=== PATIENT | female | born 1945 | race Caucasian/White ===

== ENCOUNTER 2016-06-27 08:50 | Day surgery (SDC) | payer OTHER ==
--- NOTE | ~2016-06-27 | EGD ---
EGD REPORT [facility] [address] [id number] NAME: CHERYL CANO : [birth year] STATUS : REG [facility]#: [id number] AGE: 71 ADM/REG DATE : 06/27/16 MR#: [id number] REPORT SERV DATE: 06/27/16 DICTATED BY: ERNA BAKER DATE: 06/27/16 REPORT STATUS : Draft [facility] DATE: 06/27/16 Endoscopy Center Patient Name: Cheryl Cano Date of : 1945 Attending MD: ERNA BAKER MD Procedure Date No Time: 06/27/2016 Procedure: Colonoscopy Indications: High risk colon cancer surveillance: Personal history of colonic polyps Referring MD: CARRILLO LOVE Medicines: Monitored Anesthesia Care Complications: No immediate complications. Procedure: Pre-Anesthesia Assessment: - ASA Grade Assessment: I - A normal, healthy patient. After I obtained informed consent, the scope was passed under direct vision. Throughout the procedure, the patient's blood pressure, pulse, and oxygen saturations were monitored continuously. The [facility] [id number] was introduced through the anus and advanced to the cecum, identified by appendiceal orifice and ileocecal valve. The colonoscopy was performed without difficulty. The patient tolerated the procedure well. The quality of the bowel preparation was good. Findings: The digital rectal exam was normal. Pertinent negatives include no palpable rectal lesions. Four sessile polyps were found in the transverse colon. The polyps were 4 to 12 mm in size. These polyps were removed with a cold snare. Resection and retrieval were complete. A sessile polyp was found in the sigmoid colon. The polyp was 6 mm in size. The polyp was removed with a cold snare. Resection and retrieval were complete. Hemorrhoids were found during retroflexion and were mild. Impression: - Four 4 to 12 mm polyps in the transverse colon. Resected and retrieved. - One 6 mm polyp in the sigmoid colon. Resected and retrieved. - Hemorrhoids. Recommendation: - Patient has a contact number available for emergencies. The signs and symptoms of potential delayed complications were discussed with the patient. Return to normal activities tomorrow. Written discharge EGD REPORT [address] [address] NAME: CHERYL CANO : [birth year] [place]US [place] [facility] [id number] AGE: 71 ADM/REG DATE : 06/27/16 MR#: [id number] REPORT SERV DATE: 06/27/16 DICTATED BY: ERNA BAKER DATE: 06/27/16 REPORT STATUS : Draft TRANSCRIBED BY: [employer] DATE: 06/27/16 instructions were provided to the patient. - Regular diet. - Continue present medications. - Await pathology results. - Repeat colonoscopy in 3 - 5 years for surveillance based on pathology results. - Return to GI clinic PRN. Procedure Code(s): --- Professional --- 98910, Colonoscopy, flexible, proximal to splenic flexure; with removal of tumor(s), polyp(s), or other lesion(s) by snare technique Diagnosis Code(s): --- Professional --- D12.5, Benign neoplasm of sigmoid colon D12.3, Benign neoplasm of transverse colon K64.9, Unspecified hemorrhoids Z86.010, Personal history of colonic polyps CPT copyright 2013 [employer]. All rights reserved. The codes documented in this report are preliminary and upon skate hop review may be revised to meet current compliance requirements. ERNA BAKER MD 06/27/2016 11:44 AM This report has been signed electronically. Number of Addenda: 0 Note Initiated On: 06/27/2016 10:54 AM Scope Withdrawal Time 0 hours 15 minutes 41 seconds [address] [id number]
--- NOTE | ~2016-06-27 | EGD ---
EGD REPORT [facility] [address] [address] NAME: CHERYL CANO : [birth year] STATUS : REG [facility]#: [id number] AGE: 71 ADM/REG DATE : 06/27/16 MR#: [id number] REPORT SERV DATE: 06/27/16 DICTATED BY: RENA BAKER DATE: 06/27/16 REPORT STATUS : Draft [facility]ANS[facility]IBED [facility]: [facility] DATE: 06/27/16 Endoscopy Center Patient Name: Cheryl Cano Date of : 1945 Attending MD: ERNA BAKER MD Procedure Date No Time: 06/27/2016 Procedure: Upper GI endoscopy Indications: Dysphagia, Heartburn Referring MD: CARRILLO LOVE Medicines: Monitored Anesthesia Care Complications: No immediate complications. Procedure: Pre-Anesthesia Assessment: - ASA Grade Assessment: I - A normal, healthy patient. After obtaining informed consent, the endoscope was passed under direct vision. Throughout the procedure, the patient's blood pressure, pulse, and oxygen saturations were monitored continuously. The GIF H190 [id number] was introduced through the mouth, and advanced to the second part of duodenum. The upper GI endoscopy was accomplished without difficulty. The patient tolerated the procedure well. Findings: No endoscopic abnormality was evident in the esophagus to explain the patient's complaint of dysphagia. It was decided, however, to proceed with dilation of the entire esophagus. A guidewire was placed and the scope was withdrawn. Dilation was performed with a Savary dilator with mild resistance at 45 Fr and mild resistance at 48 Fr. Localized mildly erythematous mucosa without bleeding was found in the gastric antrum. Biopsies were taken with a cold forceps for histology. The cardia and gastric fundus were normal on retroflexion. Localized mildly erythematous mucosa without active bleeding and with no stigmata of bleeding was found in the duodenal bulb. Biopsies were taken with a cold forceps for histology. The cardia and gastric fundus were normal on retroflexion. A medium-sized diverticulum was found in the second part of the duodenum. Impression: - No endoscopic esophageal abnormality to explain patient's dysphagia. Esophagus dilated. Dilated. - Erythematous mucosa in the antrum. Biopsied. - Erythematous duodenopathy. Biopsied. Recommendation: - Patient has a contact number available for emergencies. The signs and symptoms of potential delayed complications were discussed with the patient. Return to EGD REPORT [address] [place]. [address] NAME: CHERYL CANO : [birth year] STATUS : REG [facility] [place] PAT#: [id number] AGE: 71 ADM/REG DATE : 06/27/16 MR#: [id number] REPORT SERV DATE: 06/27/16 DICTATED BY: ERNA BAKER DATE: 06/27/16 REPORT STATUS : Draft TRANSCRIBED BY: [employer] DATE: 06/27/16 normal activities tomorrow. Written discharge instructions were provided to the patient. - Await pathology results. - Follow an antireflux regimen. Procedure Code(s): --- Professional --- 44247, Esophagogastroduodenoscopy, flexible, transoral; with insertion of guide wire followed by passage of dilator(s) through esophagus over guide wire 40077, Esophagogastroduodenoscopy, flexible, transoral; with biopsy, single or multiple Diagnosis Code(s): --- Professional --- R13.10, Dysphagia, unspecified K31.9, Disease of stomach and duodenum, unspecified K31.89, Other diseases of stomach and duodenum R12, Heartburn CPT copyright 2013 [employer]. All rights reserved. The codes documented in this report are preliminary and upon rehabilitation specialist review may be revised to meet current compliance requirements. ERNA BAKER MD 06/27/2016 11:17 AM This report has been signed electronically. Number of Addenda: 0 Note Initiated On: 06/27/2016 10:58 AM Scope Withdrawal Time 0 hours 0 minutes 0 seconds [id number] [place] [address]
[~2016-06-27 08:50] MED LIST: ASAB PO; BEN25 PO; CRANBERRY425 MG PO; EVISTA60 PO; FISH OIL1200 MG PO; FISH-EPA1000 MG PO; HEMOCYTE324 MG PO; MAG6464 MG PO; POTASSIUM PO; VITAMIN B-121000 MC1 SL; VITE PO
== END 2016-06-27 23:59 | disposition home or self-care (01) ==
LOC: DMU 08:50
PROVIDERS: Internal Medicine Gastroenterology
PROC: 0DBL8ZZ Excision of Transverse Colon, Via Natural or Artificial Opening Endoscopic (ICD-10-PCS; 2016-06-27)
PROC: 0DBN8ZZ Excision of Sigmoid Colon, Via Natural or Artificial Opening Endoscopic (ICD-10-PCS; 2016-06-27)
PROC: 0D758ZZ Dilation of Esophagus, Via Natural or Artificial Opening Endoscopic (ICD-10-PCS; principal; 2016-06-27 10:30)
PROC: 0DB98ZX Excision of Duodenum, Via Natural or Artificial Opening Endoscopic, Diagnostic (ICD-10-PCS; 2016-06-27 10:30)
PROC: 0DB68ZX Excision of Stomach, Via Natural or Artificial Opening Endoscopic, Diagnostic (ICD-10-PCS; 2016-06-27 10:30)
DX: Z12.11 Encounter for screening for malignant neoplasm of colon (principal); K31.89 Other diseases of stomach and duodenum; K63.5 Polyp of colon; Z86.010 Personal history of colon polyps; K64.9 Unspecified hemorrhoids; Z79.82 Long term (current) use of aspirin; Z79.899 Other long term (current) drug therapy
CPT/HCPCS: 88305